=== PATIENT | male | born 1955 | race Caucasian/White ===

== ENCOUNTER 2017-11-19 02:47 | Emergency (ER) | payer OTHER ==
[~2017-11-19] VITALS: Ht 180.3 cm; Wt 109.0 kg
[2017-11-19 02:50] VITALS: BP 202/95; PULSE 78; RESP 16; TEMP 97.8; O2SAT 96
--- NOTE | 2017-11-19 03:08 | PD ---
HPI Chief Complaint: Back/ Neck Pain or Injury Time Seen by Provider: 03:07 Travel History International Travel<30 days: No Contact w/Intl Traveler<30days: No Traveled to known affect area: No History of Present Illness HPI 62-year-old male presents to emergency department for evaluation right-sided back pain radiating into his buttock and thigh worsening of the last 3 days. Patient reports no preceding injury. States that he woke up like this 3 days ago. Denies any saddle paresthesia, loss of bowel or bladder, or lower extremity weakness. States pain is a constant ache but at times it intermittently sharp severe pain. He has had no fever or chills. No urinary symptoms. No other symptoms to report. PFSH Past Medical History Medical History: Denies Significant Hx Social History Alcohol Use: No Tobacco Use: No Substance Use: No Allergies-Medications (Allergen,Severity, Reaction): Coded Allergies: No Known Allergies (Verified Allergy, Unknown, 11/19/17) Review of Systems Except as stated in HPI: all other systems reviewed are Neg Physical Exam Narrative GENERAL: All nourished ambulatory male patient in no acute distress. SKIN: Focused skin assessment warm/dry. HEAD: Atraumatic. Normocephalic. EYES: Pupils equal and round. No scleral icterus. No injection or drainage. ENT: No nasal bleeding or discharge. Mucous membranes pink and moist. NECK: Trachea midline. No JVD. CARDIOVASCULAR: Regular rate and rhythm. No murmur appreciated. RESPIRATORY: No accessory muscle use. Clear to auscultation. Breath sounds equal bilaterally. GASTROINTESTINAL: Abdomen soft, non-tender, nondistended. Hepatic and splenic margins not palpable. MUSCULOSKELETAL: No obvious deformities. No clubbing. No cyanosis. No edema. 5+ strength equal bilateral extremity straight tenderness elicited palpation of the right sacroiliac joint. Positive straight leg. Sensation intact distal affected extremity. NEUROLOGICAL: Awake and alert. No obvious cranial nerve deficits. Motor grossly within normal limits. Normal speech. PSYCHIATRIC: Appropriate mood and affect; insight and judgment normal. Data Data Last Documented VS Vital Signs Date Time Temp Pulse Resp B/P (MAP) Pulse Ox O2 Delivery O2 Flow Rate FiO2 11/19/17 02:50 97.8 78 16 202/95 (130) 96 Orders Orders Ketorolac Inj (Toradol Inj) (11/19/17 03:15) Orphenadrine Inj (Norflex Inj) (11/19/17 03:15) Splint Or Brace Apply/Monitor (11/19/17 03:07) MDM Medical Decision Making Medical Screen Exam Complete: Yes Emergency Medical Condition: Yes Medical Record Reviewed: Yes Differential Diagnosis Low back strain versus discogenic pain versus radiculopathy versus sciatica Narrative Course 62-year-old male presents to emergency department for evaluation of low back pain. Physical exam and history are consistent with sciatica. Patient is treated here in the emergency department with pain control. He is provided a quick drop back brace. He is counseled on care and encouraged follow-up with a primary care provider. He agrees to return immediately with any acute worsening of symptoms. Diagnosis Primary Impression: Low back pain Qualified Codes: M54.41 - Lumbago with sciatica, right side Referrals: Primary Care Physician Patient Instructions: General Instructions, Sciatica (ED) Additional Instructions: Ice and/or warm moist heat may help to alleviate symptoms Brace for support. Do not wear this at all times as it may weaken your core muscles, worsening your back pain Avoid activity that exacerbates pain Follow-up with a primary care provider Return immediately with any acute worsening symptoms Med/Other Pt SpecificInfo: Prescription(s) given Scripts Methocarbamol (Robaxin) 500 Mg Tab 500 MG PO QID Y for MUSCLE SPASM, #20 TAB 0 Refills Prov: Ava Clifford 11/19/17 Methylprednisolone Dosepak (Medrol Dosepak) 4 Mg Dspk 4 MG PO DIRECTED, #1 DSPK 0 Refills Per Pharmacist direction Prov: Ava Clifford 11/19/17 Disposition: 01 DISCHARGE HOME Condition: Stable Ava Clifford Nov 19, 2017 03:08
[2017-11-19] MEDS ORDERED: KETOROLAC TROMETHAMINE 60 MG/2 ML (IM) VIAL IM ONE (03:15)
[2017-11-19] MEDS ORDERED: ORPHENADRINE INJ 60 MG/2 ML AMP IM ONE (03:15)
[2017-11-19] MEDS ORDERED: MEDR4PAK PO (04:05)
[2017-11-19] MEDS ORDERED: ROBA500T PO (04:05)
== END 2017-11-19 04:34 | disposition home or self-care (01) ==
LOC: NEPD 02:47
DX: M54.41 Lumbago with sciatica, right side (principal)
CPT/HCPCS: 96372; 99284; J1885; J2360; L0627